=== PATIENT | female | born 1935 | race Caucasian/White ===

== ENCOUNTER 2018-07-29 10:11 | Emergency (ER) | payer MEDICARE, OTHER ==
[2018-07-29] MEDS: ACETAMINOPHEN 325 MG TAB PO (11:09)
[2018-07-29] MEDS: KETOROLAC 15 MG INJ IV (12:59)
== END 2018-07-29 13:39 | disposition home or self-care (01) ==
LOC: E/R 10:11
DX: S16.1XXA Strain of muscle, fascia and tendon at neck level, initial encounter (principal); S09.90XA Unspecified injury of head, initial encounter; M48.02 Spinal stenosis, cervical region; M50.30 Other cervical disc degeneration, unspecified cervical region; I10 Essential (primary) hypertension; E11.9 Type 2 diabetes mellitus without complications; I50.9 Heart failure, unspecified; R51 Headache; W01.198A Fall on same level from slipping, tripping and stumbling with subsequent striking against other object, initial encounter; Y92.9 Unspecified place or not applicable; Z79.01 Long term (current) use of anticoagulants; Z79.84 Long term (current) use of oral hypoglycemic drugs; Z95.0 Presence of cardiac pacemaker
CPT/HCPCS: 70450; 72125; 96374; 99285-25